=== PATIENT | male | born 1990 | race African-American/Black ===

== ENCOUNTER 2020-11-01 10:16 | Emergency (ER) | payer SELFPAY ==
[~2020-11-01] VITALS: Ht 188 cm; Wt 113.0 kg
[2020-11-01 10:46] VITALS: BP 145/97
== END 2020-11-01 11:38 | disposition left against medical advice (07) ==
LOC: ER 10:36
DX: R56.9 Unspecified convulsions (principal)
CPT/HCPCS: 93005; 99283

== ENCOUNTER 2022-12-17 07:00 | Emergency (ER) | payer OTHER ==
[~2022-12-17] VITALS: Ht 188 cm; Wt 127.0 kg
[2022-12-17 08:19] VITALS: BP 122/82
== END 2022-12-17 08:20 | disposition home or self-care (01) ==
LOC: ER 07:00
DX: R56.9 Unspecified convulsions (principal); F12.10 Cannabis abuse, uncomplicated
CPT/HCPCS: 99283; Z7610

== ENCOUNTER 2024-01-15 09:52 | Emergency (ER) | payer OTHER ==
[~2024-01-15] VITALS: Ht 188 cm; Wt 117.9 kg
[2024-01-15 09:55] VITALS: O2SAT 98
[2024-01-15] MEDS: LORAZEPAM 2MG/ML INJ IV ONE (10:54)
[2024-01-15] MEDS ORDERED: BRIV50TA MT (11:02)
[2024-01-15 11:18] VITALS: BP 141/72; PULSE 74; RESP 18; TEMP 97.7
== END 2024-01-15 11:18 | disposition left against medical advice (07) ==
LOC: ER 09:52
DX: G40.909 Epilepsy, unspecified, not intractable, without status epilepticus (principal); F12.10 Cannabis abuse, uncomplicated; Z53.29 Procedure and treatment not carried out because of patient's decision for other reasons
CPT/HCPCS: 99283

== ENCOUNTER 2024-02-10 16:39 | Emergency (ER) | payer OTHER ==
[~2024-02-10] VITALS: Ht 190.5 cm; Wt 114.0 kg
[~2024-02-10 16:39] MED LIST: BRIV50TA MT
[2024-02-10 16:42] VITALS: BP 144/89; RESP 18; TEMP 98.7; O2SAT 99
[2024-02-10 16:50] VITALS: PULSE 88
[2024-02-10] MEDS ORDERED: BRIV50TA MT ×2 (16:54→17:00)
== END 2024-02-10 17:21 | disposition home or self-care (01) ==
LOC: ER 16:39
DX: G40.909 Epilepsy, unspecified, not intractable, without status epilepticus (principal); Z76.0 Encounter for issue of repeat prescription
CPT/HCPCS: 99281